=== PATIENT | female | born 2000 | race Caucasian/White ===

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

== ENCOUNTER → 2021-08-06 | Outpatient (CLI) | payer BC ==
[2021-08-06 15:44] LABS: HEMATOCRIT 35.4 % (36.0-47.0); MEAN CORPUSCULAR HEMOGLOBIN 30.5 pg (27.0-33.0); MEAN CORPUSCULAR HGB CONC 33.9 g/dl (32.0-36.5); MEAN CORPUSCULAR VOLUME 89.8 fl (80.0-96.0); PLATELET COUNT, AUTOMATED 285 10^3/uL (150-450); RED BLOOD COUNT 3.94 10^6/uL (4.00-5.40)
[2021-08-06 17:01] LABS: HEPATITIS C VIRUS ABY INDEX < 0.0 INDEX (<0.8); HIV 1&2 SCREEN CENTAUR NEGATIVE (NEGATIVE)
[2021-08-06 17:09] LABS: GC DNA AMPLIFICATION NEGATIVE (NEGATIVE)
== END ==
LOC: M PLALAB 12:18
PROVIDERS: ATTEND Obstetrics & Gynecology
DX: Z34.81 Encounter for supervision of other normal pregnancy, first trimester (principal); Z3A.00 Weeks of gestation of pregnancy not specified

== ENCOUNTER → 2021-08-20 | Outpatient (CLI) | payer BC | LOC: M WHC 09:05 | PROVIDERS: ATTEND Obstetrics & Gynecology | DX: Z34.82 Encounter for supervision of other normal pregnancy, second trimester (principal); Z3A.20 20 weeks gestation of pregnancy ==

== ENCOUNTER → 2021-11-05 | Outpatient (CLI) | payer BC ==
[2021-11-05 18:09] LABS: HEMATOCRIT 35.7 % (36.0-47.0); HEMOGLOBIN 11.9 g/dl (12.0-15.5); MEAN CORPUSCULAR HEMOGLOBIN 30.4 pg (27.0-33.0); MEAN CORPUSCULAR HGB CONC 33.3 g/dl (32.0-36.5); MEAN CORPUSCULAR VOLUME 91.3 fl (80.0-96.0); PLATELET COUNT, AUTOMATED 258 10^3/uL (150-450); RED BLOOD COUNT 3.91 10^6/uL (4.00-5.40); WHITE BLOOD COUNT 14.6 10^3/uL (4.0-10.0)
[2021-11-05 19:22] LABS: GC DNA AMPLIFICATION NEGATIVE (NEGATIVE)
== END ==
LOC: M PLALAB 13:39
PROVIDERS: ATTEND Obstetrics & Gynecology
DX: Z36.89 Encounter for other specified antenatal screening (principal)

== ENCOUNTER → 2021-12-11 | Outpatient (REF) | payer BC | LOC: M PLALAB 16:10 | PROVIDERS: ATTEND Advanced Practice Midwife | DX: Z36.89 Encounter for other specified antenatal screening (principal) ==

== ENCOUNTER → 2021-12-19 | Outpatient (CLI) | payer BC | LOC: M WHC 10:07 | PROVIDERS: ATTEND Advanced Practice Midwife | DX: Z36.87 Encounter for antenatal screening for uncertain dates (principal); O26.843 Uterine size-date discrepancy, third trimester; Z3A.35 35 weeks gestation of pregnancy ==

== ENCOUNTER 2021-12-24 07:14 | Inpatient (IN) | payer BC ==
[~2021-12-24] VITALS: Ht 165.1 cm; Wt 88.2 kg
[2021-12-24] VITALS (49 sets, daily range): BP systolic 116–182; BP diastolic 63–124
[2021-12-24] MEDS ORDERED: TUMS750C5 PO (07:42)
[2021-12-24] MEDS ORDERED: PRENTAB9 PO (07:42)
[2021-12-24] MEDS ORDERED: ACET325C5 PO (07:42)
[2021-12-24] MEDS ORDERED: HOME MED LIST COMPLETE! XX SCH (07:45)
[2021-12-24] MEDS ORDERED: METHYLERGONOVINE MALEATE 0.2 MG/ML VIAL (J2210) IM PRN (08:05)
[2021-12-24] MEDS ORDERED: TRANEXAMIC ACID INJection 1,000 MG in NS 100 ML IV PRN (08:05)
[2021-12-24] MEDS ORDERED: LIDOCAINE 1% MDV 20ML VIAL INFIL PRN (08:05)
[2021-12-24] MEDS ORDERED: CARBOPROST TROMETHAMINE 250 MCG/ML AMP IM PRN (08:05)
[2021-12-24] MEDS ORDERED: OXYTOCIN INJ 10 UNITS/ML VIAL (J2590) IM PRN (08:05)
[2021-12-24] MEDS ORDERED: OXYTOCIN DRIP 30 UNITS in IV 1 EA IV SCH (08:05)
[2021-12-24] MEDS ORDERED: OXYTOCIN DRIP 30 UNITS in IV 1 EA IV PRN ×4 (08:05)
[2021-12-24] MEDS: LR 1,000 ML IV SCH ×4 (09:15→17:25)
[2021-12-24 09:18] LABS: HEMATOCRIT 33.7 % (36.0-47.0); HEMOGLOBIN 11.5 g/dl (12.0-15.5); MEAN CORPUSCULAR HEMOGLOBIN 30.8 pg (27.0-33.0); MEAN CORPUSCULAR HGB CONC 34.1 g/dl (32.0-36.5); MEAN CORPUSCULAR VOLUME 90.3 fl (80.0-96.0); PLATELET COUNT, AUTOMATED 233 10^3/uL (150-450); RED BLOOD COUNT 3.73 10^6/uL (4.00-5.40); WHITE BLOOD COUNT 13.8 10^3/uL (4.0-10.0)
[2021-12-24] MEDS ORDERED: FENTANYL 2MCG/ML ROPIVACAINE 0.2% IN 0.9% NACL 100ML IVBAG As Ordered ONE (12:52)
[2021-12-24] MEDS ORDERED: ONDANSETRON 4MG/2ML VIAL IV PRN (13:35)
[2021-12-24] MEDS ORDERED: LR 500 ML IV PRN (13:35)
[2021-12-24] MEDS ORDERED: diphenhydrAMINE 50MG/ML VIAL (J1200) IV PRN (13:35)
[2021-12-24] MEDS ORDERED: FENTANYL/ROPIVACAINE/NACL BAG 100 ML EPIDURAL SCH (13:35)
[2021-12-24] MEDS ORDERED: NALOXONE INJ 0.4MG/1ML VIAL (J2310 PER 1MG) IV PRN (13:35)
[2021-12-24] MEDS ORDERED: EPIDURAL/PCA KEYS XX PRN (13:35)
[2021-12-24] MEDS ORDERED: ePHEDrine SULFATE 25 MG/5 ML(5MG/ML) SYRINGE IVP PRN (13:35)
[2021-12-24 18:03] LABS: CORD GAS ABE A -5.1; CORD GAS ABE V -8.7; CORD GAS HCO3 A 21.9 MEQ/L; CORD GAS HCO3 V 17.8 MEQ/L; CORD GAS O2 SAT A 50.2 %; CORD GAS O2 SAT V 54.5 %; CORD GAS PCO2 A 47.2 mmHg; CORD GAS PCO2 V 40.6 mmHg; CORD GAS PH A 7.284 UNITS; CORD GAS PH V 7.26 UNITS; CORD GAS PO2 A 23.5 mmHg; CORD GAS PO2 V 24.4 mmHg; CORD GAS SBC A 19.1 MEQ/L; CORD GAS SBC V 16.6 MEQ/L; CORD GAS TCO2 A 23.3 MEQ/L; CORD GAS TCO2 V 19.1 MEQ/L
[2021-12-24] MEDS ORDERED: ACETAMINOPHEN 500 MG TAB PO PRN (18:20)
[2021-12-24] MEDS ORDERED: RHOGAM 300 MCG (1500 IU) INJ (J2790) IM SCH (18:20)
[2021-12-24] MEDS ORDERED: METHYLERGONOVINE MALEATE 0.2 MG TAB PO PRN (18:20)
[2021-12-24] MEDS ORDERED: IBUPROFEN 600MG TAB PO PRN (18:20)
[2021-12-24] MEDS ORDERED: IBUPROFEN 800 MG TAB PO PRN (18:20)
[2021-12-24] MEDS ORDERED: ACETAMINOPHEN TAB 650MG DOSE (2X325MG) PO PRN (18:20)
[2021-12-24] MEDS ORDERED: DOCUSATE SODIUM 100MG CAPSULE PO PRN (18:20)
[2021-12-25 06:06] VITALS: BP 121/77
[2021-12-25] MEDS: PRENATAL VITAMINS CHEWABLE TABLET PO SCH (09:56)
[2021-12-25] MEDS: DIBUCAINE 1% OINTMENT 30GM TOP PRN (09:56)
[2021-12-25 18:00] VITALS: BP 111/63
[2021-12-26 06:00] VITALS: BP 125/59
[2021-12-26] MEDS: PRENATAL VITAMINS CHEWABLE TABLET PO SCH (07:58)
[2021-12-26] MEDS ORDERED: MEASLES,MUMPS,RUBELLA VACCINE INJ (MMR-II) (90707) SC.IMMUN ONE (09:00)
[2021-12-26] MEDS: DIBUCAINE 1% OINTMENT 30GM TOP PRN (11:04)
== END 2021-12-26 12:58 | disposition home or self-care (01) | DRG 560 ==
LOC: M LDO 07:14 → M LDI 08:00 → M OBS 21:10
PROVIDERS: ADMIT Advanced Practice Midwife; ATTEND Advanced Practice Midwife
PROC: 10E0XZZ Delivery of Products of Conception, External Approach (ICD-10-PCS; principal; 2021-12-24)
PROC: 0HQ9XZZ Repair Perineum Skin, External Approach (ICD-10-PCS; 2021-12-24)
DX: O42.02 Full-term premature rupture of membranes, onset of labor within 24 hours of rupture (principal); Z3A.39 39 weeks gestation of pregnancy; O70.0 First degree perineal laceration during delivery; Z37.0 Single live birth; O32.6XX0 Maternal care for compound presentation, not applicable or unspecified; O77.0 Labor and delivery complicated by meconium in amniotic fluid; O36.5930 Maternal care for other known or suspected poor fetal growth, third trimester, not applicable or unspecified

== ENCOUNTER → 2022-07-13 | Outpatient (REF) | payer BC ==
[~2022-07-13] MED LIST: ACET325C5 PO; PRENTAB9 PO; TUMS750C5 PO
== END ==
LOC: M SFHCWAGY 17:19
PROVIDERS: ATTEND Advanced Practice Midwife
DX: Z12.4 Encounter for screening for malignant neoplasm of cervix (principal); R87.610 Atypical squamous cells of undetermined significance on cytologic smear of cervix (ASC-US)
CPT/HCPCS: 87624; G0123

== ENCOUNTER → 2024-02-23 | Outpatient (CLI) | payer BC | LOC: M PLALAB 12:51 | PROVIDERS: ATTEND Obstetrics & Gynecology | DX: Z36.8A Encounter for antenatal screening for other genetic defects (principal) ==

== ENCOUNTER → 2024-02-23 | Outpatient (CLI) | payer BC ==
[2024-02-23 15:31] LABS: HEMATOCRIT 37.9 % (36.0-47.0); HEMOGLOBIN 12.9 g/dl (12.0-15.5); MEAN CORPUSCULAR HEMOGLOBIN 30.7 pg (27.0-33.0); MEAN CORPUSCULAR VOLUME 90.2 fl (80.0-96.0); PLATELET COUNT, AUTOMATED 251 10^3/uL (150-450); WHITE BLOOD COUNT 10.9 10^3/uL (4.0-10.0)
[2024-02-23 16:30] LABS: HIV 1&2 SCREEN NEGATIVE (NEGATIVE)
[2024-02-23 16:38] LABS: HEPATITIS C VIRUS ABY INDEX < 0.02 INDEX (<0.8)
[2024-02-23 17:10] LABS: GC DNA AMPLIFICATION NEGATIVE (NEGATIVE)
== END ==
LOC: M PLALAB 12:53
PROVIDERS: ATTEND Advanced Practice Midwife
DX: Z34.91 Encounter for supervision of normal pregnancy, unspecified, first trimester (principal)

== ENCOUNTER → 2024-03-20 | Outpatient (CLI) | payer BC | LOC: M WHC 08:06 | PROVIDERS: ATTEND Obstetrics & Gynecology | DX: Z34.92 Encounter for supervision of normal pregnancy, unspecified, second trimester (principal) ==

== ENCOUNTER → 2024-05-09 | Outpatient (CLI) | payer BC ==
[2024-05-09 14:58] LABS: HEMATOCRIT 33.7 % (36.0-47.0); HEMOGLOBIN 11.4 g/dl (12.0-15.5); MEAN CORPUSCULAR HEMOGLOBIN 30.6 pg (27.0-33.0); MEAN CORPUSCULAR HGB CONC 33.8 g/dl (32.0-36.5); MEAN CORPUSCULAR VOLUME 90.6 fl (80.0-96.0); PLATELET COUNT, AUTOMATED 216 10^3/uL (150-450); RED BLOOD COUNT 3.72 10^6/uL (4.00-5.40); WHITE BLOOD COUNT 12.1 10^3/uL (4.0-10.0)
[2024-05-09 15:22] LABS: GLUCOSE CHALLENGE TEST 1 HOUR 109 MG/DL (LESS THAN 140)
[2024-05-09 15:51] LABS: HIV 1&2 SCREEN NEGATIVE (NEGATIVE)
[2024-05-09 15:59] LABS: HEPATITIS C VIRUS ABY INDEX < 0.02 INDEX (<0.8)
[2024-05-09 17:01] LABS: GC DNA AMPLIFICATION NEGATIVE (NEGATIVE)
== END ==
LOC: M PLALAB 10:57
PROVIDERS: ATTEND Advanced Practice Midwife
DX: Z34.82 Encounter for supervision of other normal pregnancy, second trimester (principal); Z3A.00 Weeks of gestation of pregnancy not specified

== ENCOUNTER → 2024-05-18 | Outpatient (CLI) | payer BC ==
[2024-05-18 13:56] LABS: ALBUMIN 2.8 G/DL (3.2-5.2); ALKALINE PHOSPHATASE 156 U/L (35-104); ALT/SGPT < 9 U/L (7.0-40); AST/SGOT 8 U/L (<34); BILIRUBIN,TOTAL 0.5 MG/DL (0.3-1.2); BLOOD UREA NITROGEN 10 MG/DL (9-23); CALCIUM LEVEL 9.4 MG/DL (8.5-10.1); CARBON DIOXIDE LEVEL 27 MMOL/L (20-31); CHLORIDE LEVEL 107 MMOL/L (98-107); CREATININE FOR GFR 0.59 MG/DL (0.55-1.30); GLOMERULAR FILTRATION RATE > 60.0 (>60); GLUCOSE, FASTING 80 MG/DL (60-100); POTASSIUM SERUM 4.1 MMOL/L (3.5-5.1); SODIUM LEVEL 139 MMOL/L (136-145); TOTAL PROTEIN 6.2 G/DL (5.7-8.2)
[2024-05-18 13:58] LABS: FREE T4 1.01 NG/DL (0.89-1.76); THYROID PEROXIDASE ANTIBODY 44 U/ML (<60.0); THYROID STIMULATING HORMONE 0.562 uIU/ML (0.55-4.78); TOTAL T3 171.9 NG/DL (60.0-181.0)
== END ==
LOC: M PLALAB 11:24
PROVIDERS: ATTEND Advanced Practice Midwife
DX: O26.00 Excessive weight gain in pregnancy, unspecified trimester (principal)

== ENCOUNTER → 2024-07-11 | Outpatient (REF) | payer BC | LOC: M SFHCWAGY 12:50 | PROVIDERS: ATTEND Advanced Practice Midwife | DX: Z34.83 Encounter for supervision of other normal pregnancy, third trimester (principal); Z36.85 Encounter for antenatal screening for Streptococcus B ==

== ENCOUNTER 2024-07-23 22:16 | Inpatient (IN) | payer BC ==
[~2024-07-23] VITALS: Ht 167.6 cm; Wt 90.2 kg
[2024-07-23 22:38] VITALS: BP 126/76
[2024-07-23] MEDS ORDERED: LIDOCAINE 1% MDV 20ML VIAL INFIL PRN (22:40)
[2024-07-23] MEDS ORDERED: METHYLERGONOVINE MALEATE 0.2MG/ML 1ML VIAL IM PRN (22:40)
[2024-07-23] MEDS ORDERED: OXYTOCIN DRIP 30 UNITS in IV 1 EA IV PRN (22:40)
[2024-07-23] MEDS ORDERED: TRANEXAMIC ACID INJection 1,000 MG in NS 100 ML IV PRN (22:40)
[2024-07-23] MEDS ORDERED: CARBOPROST TROMETHAMINE 250 MCG/ML AMP IM PRN (22:40)
[2024-07-23] MEDS ORDERED: OXYTOCIN INJ 10UNITS/ML 1ML VIAL IM PRN (22:40)
[2024-07-23] MEDS ORDERED: LR 1,000 ML IV SCH (23:15)
[2024-07-23 23:28] LABS: HEMATOCRIT 34.3 % (36.0-47.0); HEMOGLOBIN 11.5 g/dl (12.0-15.5); MEAN CORPUSCULAR HEMOGLOBIN 29.4 pg (27.0-33.0); MEAN CORPUSCULAR HGB CONC 33.5 g/dl (32.0-36.5); MEAN CORPUSCULAR VOLUME 87.7 fl (80.0-96.0); PLATELET COUNT, AUTOMATED 254 10^3/uL (150-450); RED BLOOD COUNT 3.91 10^6/uL (4.00-5.40); WHITE BLOOD COUNT 11.5 10^3/uL (4.0-10.0)
[2024-07-23 23:35] VITALS: BP 99/58
[2024-07-23] MEDS: LACTATED RINGER'S 1000 ML IV STA (23:46)
[2024-07-23] MEDS: OXYTOCIN DRIP 30 UNITS in IV 1 EA IV SCH (23:46)
[2024-07-24 00:30] LABS: HEPATITIS C VIRUS ABY INDEX < 0.02 INDEX (<0.8)
[2024-07-24] MEDS ORDERED: NALOXONE INJ 0.4MG/1ML VIAL IV PRN (01:10)
[2024-07-24] MEDS ORDERED: ePHEDrine SULFATE 25 MG/5 ML(5MG/ML) SYRINGE IVP PRN (01:10)
[2024-07-24] MEDS ORDERED: EPIDURAL/PCA KEYS XX PRN (01:10)
[2024-07-24] MEDS ORDERED: LR 500 ML IV PRN (01:10)
[2024-07-24] MEDS ORDERED: diphenhydrAMINE 50MG/ML VIAL IV PRN (01:10)
[2024-07-24] MEDS ORDERED: ONDANSETRON 4MG 2ML VIAL IV PRN (01:10)
[2024-07-24] MEDS: FENTANYL/ROPIVACAINE/NACL BAG 100 ML EPIDURAL SCH (01:18)
[2024-07-24 06:30] VITALS: BP 109/56; O2SAT 100
[2024-07-24] MEDS ORDERED: ACETAMINOPHEN 500 MG TAB PO PRN (09:25)
[2024-07-24] MEDS ORDERED: RHOGAM 300MCG (1500IU) INJ IM SCH (09:25)
[2024-07-24] MEDS ORDERED: MOM 30ML SUSPENSION UDC PO PRN (09:25)
[2024-07-24] MEDS ORDERED: DIBUCAINE 1% OINTMENT 30GM TOP PRN (09:25)
[2024-07-24] MEDS ORDERED: ANUSOL HC CREAM 30GM TOP PRN (09:25)
[2024-07-24] MEDS: DOCUSATE SODIUM 100MG CAPSULE PO PRN (10:11)
[2024-07-24] MEDS: PRENATAL VITAMINS CHEWABLE TABLET PO SCH (10:11)
[2024-07-24] MEDS: IBUPROFEN 800 MG TAB PO PRN (14:07)
[2024-07-24 18:28] VITALS: BP 122/68; O2SAT 97
[2024-07-24] MEDS: ACETAMINOPHEN 325 MG TAB PO PRN (19:18)
[2024-07-24] MEDS: IBUPROFEN 600MG TAB PO PRN (22:09)
[2024-07-25 06:00] VITALS: BP 101/55; O2SAT 98
[2024-07-25 07:54] VITALS: BP 101/55; TEMP 98.4; O2SAT 98
[2024-07-25] MEDS ORDERED: ACET-683 PO (13:44)
[2024-07-25] MEDS ORDERED: IBUP80TA PO (13:44)
[2024-07-26] MEDS ORDERED: MEASLES,MUMPS,RUBELLA VACCINE INJ (MMR-II) SC.IMMUN ONE (09:00)
== END 2024-07-25 14:50 | disposition home or self-care (01) | DRG 560 ==
LOC: M LDO 22:16 → M LDI 22:49 → M OBS 07-24 05:45
PROVIDERS: ADMIT Advanced Practice Midwife; ATTEND Advanced Practice Midwife
PROC: 3E033VJ Introduction of Other Hormone into Peripheral Vein, Percutaneous Approach (ICD-10-PCS; 2024-07-23)
PROC: 10E0XZZ Delivery of Products of Conception, External Approach (ICD-10-PCS; principal; 2024-07-24)
DX: O42.02 Full-term premature rupture of membranes, onset of labor within 24 hours of rupture (principal); Z37.0 Single live birth; Z3A.38 38 weeks gestation of pregnancy; O69.81X0 Labor and delivery complicated by cord around neck, without compression, not applicable or unspecified

== ENCOUNTER → 2025-04-19 | Outpatient (REF) | payer BC ==
[~2025-04-19] MED LIST changes: +ACET-683 PO; +IBUP80TA PO
== END ==
LOC: M LAB REF 12:11
PROVIDERS: ATTEND Physician Assistant
DX: B34.9 Viral infection, unspecified (principal); J02.9 Acute pharyngitis, unspecified